=== PATIENT | male | born 1975 | race Caucasian/White ===

== ENCOUNTER → 2016-07-16 | Outpatient (REF) | payer OTHER ==
[~2016-07-16] MED LIST: /OLAN5ZYD OR; CYMB1CAP PO; DEPA250T2 PO; DEPA500T2 OR; DEPA500T2 PO; KLON1TAB PO; OXYC15TA76 PO; OXYC1CON PO; OXYC30TA4 PO; PERC5TAB6 PO; PERC5TAB8 OR; PROP60TA OR; PROT1TAB2 PO; PROTPAK PO; RANI15TA PO; TRAZ50TA OR; TRAZ50TA2 PO; XANA1TAB2 PO
[2016-07-16 14:27] LABS: ALBUMIN 4.2 GM/DL (3.2-5.2); ALBUMIN/GLOBULIN RATIO 1.17 (1.00-1.93); ALKALINE PHOSPHATASE 64 U/L (45-117); ALT/SGPT 27 U/L (12-78); ANION GAP 7 MEQ/L (8-16); AST/SGOT 18 U/L (15-37); BILIRUBIN,TOTAL 0.7 MG/DL (0.2-1.0); BLOOD UREA NITROGEN 8 MG/DL (7-18); CALCIUM LEVEL 9.3 MG/DL (8.5-10.1); CARBON DIOXIDE LEVEL 29 MEQ/L (21-32); CHLORIDE LEVEL 107 MEQ/L (98-107); GLOMERULAR FILTRATION RATE > 60.0 (>60); GLUCOSE, FASTING 85 MG/DL (70-105); POTASSIUM SERUM 3.8 MEQ/L (3.5-5.1); SODIUM LEVEL 143 MEQ/L (136-145); TOTAL PROTEIN 7.8 GM/DL (6.4-8.2)
== END ==
LOC: M SFHCPLAZ 10:30
PROVIDERS: ATTEND Family Medicine
DX: F31.9 Bipolar disorder, unspecified (principal); G89.4 Chronic pain syndrome; F12.10 Cannabis abuse, uncomplicated

== ENCOUNTER 2016-09-16 17:55 | Emergency (ER) | payer OTHER, MEDICAID ==
[~2016-09-16] VITALS: Ht 172.7 cm; Wt 81.6 kg
[2016-09-16] MEDS ORDERED: METH10TA2 PO (18:12)
[2016-09-16] MEDS ORDERED: CLON0.5T PO (18:12)
[2016-09-16] MEDS ORDERED: METHADONE 10 MG TAB (S0109) PO ONE (22:30)
[2016-09-16] MEDS ORDERED: clonazePAM 0.5 MG TAB PO ONE (22:30)
[2016-09-16] MEDS ORDERED: DIVALPROEX 250MG *ER* TAB PO ONE (22:30)
[2016-09-17 02:00] VITALS: BP 126/65
== END 2016-09-17 02:10 ==
LOC: EDBD 17:55 → M ED 18:21
DX: R45.851 Suicidal ideations (principal); F31.9 Bipolar disorder, unspecified; F43.10 Post-traumatic stress disorder, unspecified; G89.29 Other chronic pain; M54.9 Dorsalgia, unspecified; Z87.820 Personal history of traumatic brain injury; F19.20 Other psychoactive substance dependence, uncomplicated; F17.210 Nicotine dependence, cigarettes, uncomplicated

== ENCOUNTER 2016-11-04 13:30 | Emergency (ER) | payer MEDICAID, OTHER ==
[~2016-11-04] VITALS: Ht 172.7 cm; Wt 90.7 kg
[~2016-11-04 13:30] MED LIST changes: +CLON0.5T PO; +METH10TA2 PO; +PERC5TAB12 PO; -PERC5TAB6 PO
[2016-11-04 13:32] VITALS: BP 127/72
[2016-11-04] MEDS ORDERED: METH10TA2 PO ×4 (13:45→13:55)
[2016-11-04] MEDS ORDERED: DEPA250T2 PO (13:55)
[2016-11-04] MEDS ORDERED: LORA0.5T11 PO (13:55)
[2016-11-04] MEDS ORDERED: DEPA500T2 PO (13:55)
[2016-11-04] MEDS ORDERED: ZYPR2.5T2 PO (13:55)
[2016-11-04] MEDS ORDERED: CLEO300C2 PO (14:27)
== END 2016-11-04 14:33 | disposition home or self-care (01) ==
LOC: M ED 13:30
DX: K04.7 Periapical abscess without sinus (principal); K02.9 Dental caries, unspecified; F99 Mental disorder, not otherwise specified; F17.210 Nicotine dependence, cigarettes, uncomplicated; Z88.6 Allergy status to analgesic agent; Z88.8 Allergy status to other drugs, medicaments and biological substances; Z79.899 Other long term (current) drug therapy

== ENCOUNTER → 2017-04-30 | Outpatient (REF) | payer OTHER ==
[2017-04-30 17:24] LABS: ALBUMIN 4.3 GM/DL (3.2-5.2); ALBUMIN/GLOBULIN RATIO 1.19 (1.00-1.93); ALKALINE PHOSPHATASE 74 U/L (45-117); ALT/SGPT 55 U/L (12-78); AST/SGOT 34 U/L (7-37); BILIRUBIN,DIRECT 0.1 MG/DL (0.0-0.2); BILIRUBIN,TOTAL 0.3 MG/DL (0.2-1.0); TOTAL PROTEIN 7.9 GM/DL (6.4-8.2)
[2017-05-04 10:11] LABS: ALPHA 2-MACROGLOBULIN 186 mg/dL (110-276); ALT 52 IU/L (0-55); APOLIPOPROTEIN A-1 151 mg/dL (101-178); FIBROSIS SCORE 0.16 (0.00-0.21); GGT 52 IU/L (0-65); HAPTOGLOBIN 105 mg/dL (34-200); HEPATITIS C QUANTITATION 2715520 IU/mL (.); NECROINFLAM SCORE 0.26 (0.00-0.17); NECROINFLAMM GRADE A0-A1 (.); TOTAL BILIRUBIN 0.3 mg/dL (0.0-1.2)
== END ==
LOC: M SFHCPLAZ 16:01
DX: B18.2 Chronic viral hepatitis C (principal)

== ENCOUNTER → 2017-10-25 | Outpatient (REF) | payer OTHER ==
[2017-10-25 16:18] LABS: ALBUMIN 3.5 GM/DL (3.2-5.2); ALBUMIN/GLOBULIN RATIO 0.92 (1.00-1.93); ALKALINE PHOSPHATASE 68 U/L (45-117); ALT/SGPT 80 U/L (12-78); AST/SGOT 59 U/L (7-37); BILIRUBIN,DIRECT 0.2 MG/DL (0.0-0.2); BILIRUBIN,TOTAL 0.5 MG/DL (0.2-1.0); TOTAL PROTEIN 7.3 GM/DL (6.4-8.2)
[2017-10-25 16:26] LABS: HEPATITIS B SURFACE ANTIBODY NEGATIVE (POSITIVE)
[2017-10-25 17:06] LABS: HIV 1&2 SCREEN CENTAUR NEGATIVE (NEGATIVE)
[2017-10-25 17:49] LABS: CHOLESTEROL LEVEL 176 MG/DL (<200); CHOLESTEROL RISK RATIO 3.911 (<5); HDL CHOLESTEROL 45 MG/DL (>40); LDL CHOLESTEROL 92.4 MG/DL (<100); NON-HDL-C 131 MG/DL; TRIGLYCERIDES LEVEL 193 MG/DL (<150); VALPROIC ACID (DEPAKOTE) 16.4 UG/ML (50.0-100.0)
[2017-10-28 14:44] LABS: HEPATITIS A IgG TOTAL Negative (Negative); HEPATITIS B CORE ANTIBODY IGG Negative (Negative); HEPATITIS C QUANTITATION 4247490 IU/mL (.)
[2017-10-29 15:13] LABS: AMPHETAMINE SCREEN, URINE SEE SEPARATE REPORT
== END ==
LOC: M SFHCPLAZ 10:54
DX: Z13.220 Encounter for screening for lipoid disorders (principal); F31.9 Bipolar disorder, unspecified; G89.4 Chronic pain syndrome; B18.2 Chronic viral hepatitis C
CPT/HCPCS: 80164

== ENCOUNTER → 2017-12-02 | Outpatient (REF) | payer OTHER ==
[2017-12-02 16:59] LABS: ALBUMIN 3.5 GM/DL (3.2-5.2); ALBUMIN/GLOBULIN RATIO 0.88 (1.00-1.93); ALKALINE PHOSPHATASE 68 U/L (45-117); ALT/SGPT 22 U/L (12-78); AST/SGOT 7 U/L (7-37); BILIRUBIN,DIRECT 0.2 MG/DL (0.0-0.2); BILIRUBIN,TOTAL 0.7 MG/DL (0.2-1.0); TOTAL PROTEIN 7.5 GM/DL (6.4-8.2); VALPROIC ACID (DEPAKOTE) 94.1 UG/ML (50.0-100.0)
[2017-12-07 15:19] LABS: HEPATITIS C QUANTITATION <15 IU/mL (.)
== END ==
LOC: M SFHCPLAZ 12:21
DX: B18.2 Chronic viral hepatitis C (principal); F31.9 Bipolar disorder, unspecified
CPT/HCPCS: 80164

== ENCOUNTER → 2018-03-18 | Outpatient (CLI) | payer OTHER | LOC: M RAD 17:47 | DX: M51.26 Other intervertebral disc displacement, lumbar region (principal); M25.78 Osteophyte, vertebrae; M54.9 Dorsalgia, unspecified | CPT/HCPCS: 72148 ==

== ENCOUNTER → 2018-10-24 | Outpatient (REF) | payer OTHER ==
[~2018-10-24] MED LIST changes: -/OLAN5ZYD OR; +CLEO300C2 PO; -CLON0.5T PO; +CLON0.5T8 PO; +LORA0.5T11 PO; +ZYPR1TAB3 OR; +ZYPR2.5T2 PO
[2018-10-29 08:22] LABS: CANNABINOID, URINE Positive (Cutoff=20); CARBOXY THC (GC/MS) 163 ng/mL (Cutoff=10); CREATININE, URINE 113.1 mg/dL (20.0-300.0); METHADONE, URINE (GC/MS) 4475 ng/mL (Cutoff=100)
== END ==
LOC: M SFHCPLAZ 12:28
PROVIDERS: ATTEND Family Medicine
DX: E78.1 Pure hyperglyceridemia (principal); F31.9 Bipolar disorder, unspecified; G89.4 Chronic pain syndrome; B18.2 Chronic viral hepatitis C; M54.9 Dorsalgia, unspecified; R37 Sexual dysfunction, unspecified

== ENCOUNTER → 2018-11-03 | Outpatient (REF) | payer OTHER ==
[2018-11-03 11:56] LABS: HEMATOCRIT 41.8 % (42.0-52.0); HEMOGLOBIN 14.7 g/dl (13.5-17.5); MEAN CORPUSCULAR HEMOGLOBIN 30.6 pg (27.0-33.0); MEAN CORPUSCULAR HGB CONC 35.2 g/dl (32.0-36.5); MEAN CORPUSCULAR VOLUME 87.1 fl (80.0-96.0); PLATELET COUNT, AUTOMATED 182 10^3/uL (150-450); WHITE BLOOD COUNT 6.2 10^3/uL (4.0-10.0)
[2018-11-03 12:38] LABS: ALBUMIN 3.6 GM/DL (3.2-5.2); ALT/SGPT 25 U/L (12-78); BILIRUBIN,TOTAL 0.3 MG/DL (0.2-1.0); BLOOD UREA NITROGEN 9 MG/DL (7-18); CALCIUM LEVEL 8.8 MG/DL (8.5-10.1); CARBON DIOXIDE LEVEL 30 MEQ/L (21-32); CHLORIDE LEVEL 103 MEQ/L (98-107); CHOLESTEROL LEVEL 212 MG/DL (<200); CHOLESTEROL RISK RATIO 5.888 (<5); CREATININE FOR GFR 0.95 MG/DL (0.70-1.30); GLOMERULAR FILTRATION RATE > 60.0 (>60); GLUCOSE, FASTING 113 MG/DL (70-100); HDL CHOLESTEROL 36 MG/DL (>40); LDL CHOLESTEROL 126 MG/DL (<100); NON-HDL-C 176 MG/DL; POTASSIUM SERUM 3.7 MEQ/L (3.5-5.1); SODIUM LEVEL 141 MEQ/L (136-145); TOTAL 25(OH) VITAMIN D 14.8 NG/ML (30.0-100.0); TOTAL PROTEIN 7.4 GM/DL (6.4-8.2); TRIGLYCERIDES LEVEL 250 MG/DL (<150)
[2018-11-07 14:07] LABS: HEPATITIS C QUANTITATION HCV Not Detected IU/mL (.)
== END ==
LOC: M SFHCPLAZ 10:05
PROVIDERS: ATTEND Family Medicine
DX: E78.1 Pure hyperglyceridemia (principal); F31.9 Bipolar disorder, unspecified; B18.2 Chronic viral hepatitis C; G89.4 Chronic pain syndrome; M54.9 Dorsalgia, unspecified; R37 Sexual dysfunction, unspecified

== ENCOUNTER 2019-04-25 13:57 | Emergency (ER) | payer OTHER ==
[~2019-04-25] VITALS: Ht 172.7 cm; Wt 96.4 kg
[~2019-04-25 13:57] MED LIST changes: +CLON0.5T2 PO; -CLON0.5T8 PO
[2019-04-25 15:04] LABS: HEMATOCRIT 43.5 % (42.0-52.0); HEMOGLOBIN 14.4 g/dl (13.5-17.5); MEAN CORPUSCULAR HEMOGLOBIN 28.6 pg (27.0-33.0); MEAN CORPUSCULAR HGB CONC 33.1 g/dl (32.0-36.5); MEAN CORPUSCULAR VOLUME 86.5 fl (80.0-96.0); PLATELET COUNT, AUTOMATED 187 10^3/uL (150-450); RED BLOOD COUNT 5.03 10^6/uL (4.30-6.10); WHITE BLOOD COUNT 4.8 10^3/uL (4.0-10.0)
[2019-04-25 15:36] LABS: ACETAMINOPHEN LEVEL < 2.0 UG/ML (10.0-30.0); ALBUMIN 3.6 GM/DL (3.2-5.2); ALT/SGPT 25 U/L (12-78); BILIRUBIN,DIRECT < 0.1 MG/DL (0.0-0.2); BILIRUBIN,TOTAL 0.3 MG/DL (0.2-1.0); BLOOD UREA NITROGEN 11 MG/DL (7-18); CALCIUM LEVEL 8.6 MG/DL (8.5-10.1); CARBON DIOXIDE LEVEL 31 MEQ/L (21-32); CHLORIDE LEVEL 102 MEQ/L (98-107); ETHYL ALCOHOL (ETHANOL) < 0.003 % (0.000-0.010); GLOMERULAR FILTRATION RATE > 60.0 (>60); GLUCOSE, FASTING 99 MG/DL (70-100); POTASSIUM SERUM 4.3 MEQ/L (3.5-5.1); SALICYLATE LEVEL < 1.7 MG/DL (5.0-30.0); SODIUM LEVEL 139 MEQ/L (136-145)
[2019-04-25 16:59] LABS: AMPHETAMINES LEVEL URINE NEGATIVE (NEGATIVE); BARBITURATES URINE NEGATIVE (NEGATIVE); BENZODIAZEPINES URINE NEGATIVE (NEGATIVE); CANNABINOIDS URINE POSITIVE (NEGATIVE); COCAINE METABOLITE URINE NEGATIVE (NEGATIVE); METHADONE URINE POSITIVE (NEGATIVE); OPIATES URINE NEGATIVE (NEGATIVE); PHENCYCLIDINE URINE NEGATIVE (NEGATIVE)
[2019-04-25 17:05] LABS: VALPROIC ACID (DEPAKOTE) < 3.0 UG/ML (50.0-100.0)
[2019-04-25] MEDS ORDERED: OMEP-221 PO (20:50)
[2019-04-25 23:43] VITALS: BP 123/77
--- NOTE | 2019-04-26 08:04 | ECGEPIP ---
[facility] - ED Test Date: 2019-04-25 Pat Name: KOKO RESENDEZ Department: Room: - Gender: Male [employer] Dispatch Clerk: TRISTEN : 1975 Requested By: JADYN Naranjo Order Number: [id number] Reading MD: Ramona Loza Measurements Intervals [place] Rate: 57 P: 16 AK: 115 QRS: 83 QRSD: 92 T: 55 QT: 385 QTc: 378 Interpretive Statements SINUS BRADYCARDIA WITH SHORT AK INTERVAL NO PRIOR Electronically Signed on 04-26-2019 8:03:35 EST by Ramona Loza
== END 2019-04-25 23:52 ==
LOC: M ED 13:57
DX: F31.9 Bipolar disorder, unspecified (principal); R45.850 Homicidal ideations; R00.1 Bradycardia, unspecified; I25.2 Old myocardial infarction; M54.9 Dorsalgia, unspecified; Z87.820 Personal history of traumatic brain injury; Z79.899 Other long term (current) drug therapy; Z88.8 Allergy status to other drugs, medicaments and biological substances
CPT/HCPCS: 80048; 80076; 80164; 80307; 84443; 85027; 93005; 99285; G0480

== ENCOUNTER → 2020-07-18 | Outpatient (REF) | payer OTHER ==
[~2020-07-18] MED LIST changes: -LORA0.5T11 PO; +LORA0.5T5 PO; +OMEP-221 PO; +OXYC-1 PO; -OXYC15TA76 PO
[2020-07-21 23:08] LABS: CANNABINOID, URINE Positive (Cutoff=20); CARBOXY THC (GC/MS) 295 ng/mL (Cutoff=10); CREATININE, URINE 192.6 mg/dL (20.0-300.0); METHADONE, URINE (GC/MS) 2950 ng/mL (Cutoff=100)
== END ==
LOC: M SFHCPLAZ 13:11
PROVIDERS: ATTEND Family Medicine
DX: G89.4 Chronic pain syndrome (principal)

== ENCOUNTER 2021-07-01 15:51 | Emergency (ER) | payer OTHER ==
[~2021-07-01] VITALS: Ht 172.7 cm; Wt 88.2 kg
[~2021-07-01 15:51] MED LIST changes: +METH-1177 PO; -METH10TA2 PO; -OMEP-221 PO; +OMEP40CA5 PO
[2021-07-01 15:52] VITALS: BP 131/85
== END 2021-07-01 17:56 | disposition left against medical advice (07) ==
LOC: M ED 15:51
DX: M54.9 Dorsalgia, unspecified (principal); Z53.9 Procedure and treatment not carried out, unspecified reason; G89.29 Other chronic pain; F41.9 Anxiety disorder, unspecified; F31.9 Bipolar disorder, unspecified; Z86.19 Personal history of other infectious and parasitic diseases; Z87.820 Personal history of traumatic brain injury; F17.200 Nicotine dependence, unspecified, uncomplicated; Z88.8 Allergy status to other drugs, medicaments and biological substances

== ENCOUNTER 2021-08-07 14:07 | Inpatient (IN) | payer MEDICAID, OTHER ==
[~2021-08-07] VITALS: Ht 172.7 cm; Wt 90.0 kg
[2021-08-07 15:17] LABS: AMPHETAMINES LEVEL URINE NEGATIVE (NEGATIVE); BARBITURATES URINE NEGATIVE (NEGATIVE); BENZODIAZEPINES URINE NEGATIVE (NEGATIVE); CANNABINOIDS URINE NEGATIVE (NEGATIVE); COCAINE METABOLITE URINE NEGATIVE (NEGATIVE); METHADONE URINE NEGATIVE (NEGATIVE); OPIATES URINE NEGATIVE (NEGATIVE); PHENCYCLIDINE URINE NEGATIVE (NEGATIVE)
[2021-08-07 16:09] LABS: HEMATOCRIT 44.7 % (42.0-52.0); HEMOGLOBIN 15.6 g/dl (13.5-17.5); MEAN CORPUSCULAR HEMOGLOBIN 29.3 pg (27.0-33.0); MEAN CORPUSCULAR HGB CONC 34.9 g/dl (32.0-36.5); PLATELET COUNT, AUTOMATED 246 10^3/uL (150-450); RED BLOOD COUNT 5.32 10^6/uL (4.30-6.10); WHITE BLOOD COUNT 8.5 10^3/uL (4.0-10.0)
[2021-08-07] MEDS ORDERED: IBUP80TA PO (16:33)
[2021-08-07] MEDS ORDERED: CIPR500T39 PO (16:33)
[2021-08-07 16:45] LABS: ACETAMINOPHEN LEVEL < 2.0 UG/ML (10.0-30.0); ALBUMIN 4.1 GM/DL (3.2-5.2); ALT/SGPT 30 U/L (12-78); BILIRUBIN,DIRECT 0.1 MG/DL (0.0-0.2); BILIRUBIN,TOTAL 0.4 MG/DL (0.2-1.0); BLOOD UREA NITROGEN 10 MG/DL (7-18); CALCIUM LEVEL 9.7 MG/DL (8.5-10.1); CARBON DIOXIDE LEVEL 27 MEQ/L (21-32); CHLORIDE LEVEL 106 MEQ/L (98-107); ETHYL ALCOHOL (ETHANOL) < 0.003 % (0.000-0.010); GLOMERULAR FILTRATION RATE > 60.0 (>60); GLUCOSE, FASTING 137 MG/DL (70-100); POTASSIUM SERUM 3.9 MEQ/L (3.5-5.1); SALICYLATE LEVEL < 1.7 MG/DL (5.0-30.0); SODIUM LEVEL 143 MEQ/L (136-145); TOTAL PROTEIN 7.9 GM/DL (6.4-8.2)
[2021-08-07] MEDS ORDERED: IBUPROFEN 600MG TAB PO ONE (18:00)
[2021-08-07 20:17] LABS: RSV AMPLIFICATION NEGATIVE (NEGATIVE)
[2021-08-07] MEDS ORDERED: VITMTA PO (20:30)
[2021-08-07] MEDS ORDERED: HOME MED LIST COMPLETE! XX SCH (20:30)
[2021-08-07] MEDS ORDERED: CIPROFLOXACIN 500MG TABLET PO ONE (20:45)
[2021-08-08] MEDS ORDERED: ACETAMINOPHEN 325 MG TAB PO ONE (07:55)
[2021-08-08] MEDS: CIPROFLOXACIN 500MG TABLET PO SCH ×2 (08:23→22:12)
[2021-08-08] MEDS ORDERED: IBUPROFEN 600MG TAB PO ONE ×2 (08:30→18:15)
[2021-08-09] MEDS: CIPROFLOXACIN 500MG TABLET PO SCH ×2 (08:56→19:30)
[2021-08-09] MEDS ORDERED: IBUPROFEN 600MG TAB PO ONE (14:40)
[2021-08-09] MEDS ORDERED: ACETAMINOPHEN TAB 650MG DOSE (2X325MG) PO ONE (19:20)
[2021-08-09] MEDS: SENOKOT S TAB PO SCH (19:31)
[2021-08-10] MEDS: IBUPROFEN 600MG TAB PO PRN (10:12)
[2021-08-10] MEDS: SENOKOT S TAB PO SCH ×2 (10:12→21:12)
[2021-08-10] MEDS: CIPROFLOXACIN 500MG TABLET PO SCH ×2 (10:12→21:13)
[2021-08-10] MEDS ORDERED: ACETAMINOPHEN TAB 650MG DOSE (2X325MG) PO ONE (12:45)
[2021-08-11] MEDS: CIPROFLOXACIN 500MG TABLET PO SCH ×2 (09:05→21:00)
[2021-08-11] MEDS: SENOKOT S TAB PO SCH ×2 (09:05→21:00)
[2021-08-11] MEDS ORDERED: MOM 30ML SUSPENSION UDC PO PRN (13:35)
[2021-08-11] MEDS ORDERED: traZODone 50 MG TAB PO PRN (13:35)
[2021-08-11] MEDS ORDERED: ONDANSETRON 4MG ORAL DISINTEGRATING TAB PO ONE (14:55)
[2021-08-11 16:29] VITALS: BP 134/91
[2021-08-11] MEDS: IBUPROFEN 600MG TAB PO PRN (18:36)
[2021-08-12 06:24] VITALS: BP 147/82
[2021-08-12] MEDS: SENOKOT S TAB PO SCH (08:11)
[2021-08-12] MEDS: CIPROFLOXACIN 500MG TABLET PO SCH (08:12)
[2021-08-12] MEDS ORDERED: NICOTINE 14 MG/24 HR TRANSDERMAL TD PRN (11:15)
[2021-08-12 18:00] VITALS: BP 148/88
[2021-08-12] MEDS: DIVALPROEX 250MG *ER* TAB PO SCH (20:49)
[2021-08-12] MEDS: ACETAMINOPHEN TAB 650MG DOSE (2X325MG) PO PRN (20:51)
[2021-08-13] MEDS: diphenhydrAMINE 25MG CAP PO PRN ×2 (02:56→23:16)
[2021-08-13] MEDS: ACETAMINOPHEN TAB 650MG DOSE (2X325MG) PO PRN (04:01)
[2021-08-13 07:03] VITALS: BP 124/78
[2021-08-13 08:00] LABS: BASO % 0.6 % (0.0-1.0); EOS # 0.1 10^3/uL (0.0-0.5); EOS % 1.3 % (0.0-3.0); HEMATOCRIT 42.7 % (42.0-52.0); LYMPH # 2.5 10^3/uL (1.5-5.0); LYMPH % 37.1 % (24.0-44.0); MEAN CORPUSCULAR HEMOGLOBIN 29.2 pg (27.0-33.0); MEAN CORPUSCULAR HGB CONC 35.1 g/dl (32.0-36.5); MEAN CORPUSCULAR VOLUME 83.2 fl (80.0-96.0); MONO # 0.5 10^3/uL (0.0-0.8); MONO % 7.3 % (2.0-8.0); NEUTROPHILS # 3.6 10^3/uL (1.5-8.5); NEUTROPHILS % 53.3 % (36.0-66.0); PLATELET COUNT, AUTOMATED 236 10^3/uL (150-450); RED BLOOD COUNT 5.13 10^6/uL (4.30-6.10); WHITE BLOOD COUNT 6.8 10^3/uL (4.0-10.0)
[2021-08-13 08:22] LABS: BLOOD UREA NITROGEN 12 MG/DL (7-18); CARBON DIOXIDE LEVEL 30 MEQ/L (21-32); CHLORIDE LEVEL 104 MEQ/L (98-107); CHOLESTEROL LEVEL 199 MG/DL (<200); CHOLESTEROL RISK RATIO 4.145 (<5); CREATININE FOR GFR 0.81 MG/DL (0.70-1.30); GLOMERULAR FILTRATION RATE > 60.0 (>60); GLUCOSE, FASTING 98 MG/DL (70-100); HDL CHOLESTEROL 48 MG/DL (>40); LDL CHOLESTEROL 123 MG/DL (<100); NON-HDL-C 151 MG/DL; POTASSIUM SERUM 4.4 MEQ/L (3.5-5.1); SODIUM LEVEL 140 MEQ/L (136-145); TRIGLYCERIDES LEVEL 142 MG/DL (<150)
[2021-08-13 08:32] LABS: HEMOGLOBIN A1c 5.2 %
[2021-08-13 16:26] VITALS: BP 123/70
[2021-08-13] MEDS: ARIPiprazole 10 MG TAB PO SCH (20:59)
[2021-08-13] MEDS: DIVALPROEX 250MG *ER* TAB PO SCH (21:00)
[2021-08-14] MEDS: ACETAMINOPHEN TAB 650MG DOSE (2X325MG) PO PRN ×2 (04:31→16:45)
[2021-08-14 06:34] VITALS: BP 126/86
[2021-08-14 18:28] VITALS: BP 131/84
[2021-08-14] MEDS: ARIPiprazole 10 MG TAB PO SCH (20:57)
[2021-08-14] MEDS ORDERED: DIVALPROEX 500MG *ER* TAB PO SCH (21:00)
[2021-08-14] MEDS: diphenhydrAMINE 25MG CAP PO PRN (22:20)
[2021-08-15 07:08] VITALS: BP 140/90
[2021-08-15] MEDS ORDERED: DEPA500T2 PO (09:43)
[2021-08-15] MEDS ORDERED: ABIL400I IM (09:43)
[2021-08-15] MEDS ORDERED: ABIL10TA9 PO (09:43)
[2021-08-15] MEDS ORDERED: NICO14PA TD (09:43)
[2021-08-15] MEDS ORDERED: ARIPiprazole MONOHYDRATE 400 MG INJ (ABILIFY) IM ONE (12:00)
[2021-08-15] MEDS ORDERED: DEPA1TAB3 PO (13:27)
[2021-08-16] MEDS ORDERED: CIPROFLOXACIN 500MG TABLET PO ONE (21:00)
== END 2021-08-15 14:19 | disposition home or self-care (01) | DRG 753 ==
LOC: M ED 14:07 → UNDOADMIN 08-11 13:35 → M ED INP 08-11 13:35 → M PSY 08-11 16:20
PROVIDERS: ADMIT Student in an Organized Health Care Education/Training Program; ATTEND Student in an Organized Health Care Education/Training Program
DX: F31.9 Bipolar disorder, unspecified (principal); F60.89 Other specific personality disorders; F22 Delusional disorders; Z91.14 Patient's other noncompliance with medication regimen; R45.850 Homicidal ideations; Z87.820 Personal history of traumatic brain injury; Z87.891 Personal history of nicotine dependence; F19.11 Other psychoactive substance abuse, in remission; Z79.899 Other long term (current) drug therapy; Z88.8 Allergy status to other drugs, medicaments and biological substances; M54.9 Dorsalgia, unspecified; Z20.822 Contact with and (suspected) exposure to COVID-19

== ENCOUNTER 2021-10-27 16:56 | Inpatient (IN) | payer MEDICAID, OTHER ==
[~2021-10-27] VITALS: Ht 172.7 cm; Wt 98.4 kg
[~2021-10-27 16:56] MED LIST changes: +ABIL10TA9 PO; +ABIL400I IM; +CIPR500T39 PO; +DEPA1TAB3 PO; +IBUP80TA PO; +NICO14PA TD; +VITMTA PO
[2021-10-27] MEDS ORDERED: HYDR50TA70 PO (17:13)
[2021-10-27] MEDS ORDERED: ZOLP10TA2 (17:13)
[2021-10-27 18:43] LABS: HEMATOCRIT 43.7 % (42.0-52.0); HEMOGLOBIN 15.2 g/dl (13.5-17.5); MEAN CORPUSCULAR HEMOGLOBIN 29.6 pg (27.0-33.0); MEAN CORPUSCULAR HGB CONC 34.8 g/dl (32.0-36.5); MEAN CORPUSCULAR VOLUME 85.2 fl (80.0-96.0); PLATELET COUNT, AUTOMATED 233 10^3/uL (150-450); RED BLOOD COUNT 5.13 10^6/uL (4.30-6.10); WHITE BLOOD COUNT 7.6 10^3/uL (4.0-10.0)
[2021-10-27] MEDS ORDERED: ACETAMINOPHEN TAB 650MG DOSE (2X325MG) PO ONE (19:00)
[2021-10-27 19:16] LABS: RSV AMPLIFICATION NEGATIVE (NEGATIVE)
[2021-10-27 19:20] LABS: BLOOD UREA NITROGEN 14 MG/DL (7-18); CREATININE FOR GFR 0.91 MG/DL (0.70-1.30); GLUCOSE, FASTING 90 MG/DL (70-100)
[2021-10-27 19:21] LABS: ACETAMINOPHEN LEVEL < 2.0 UG/ML (10.0-30.0); ALBUMIN 3.9 GM/DL (3.2-5.2); ALT/SGPT 23 U/L (12-78); BILIRUBIN,DIRECT 0.1 MG/DL (0.0-0.2); BILIRUBIN,TOTAL 0.4 MG/DL (0.2-1.0); CALCIUM LEVEL 8.8 MG/DL (8.5-10.1); CARBON DIOXIDE LEVEL 28 MEQ/L (21-32); CHLORIDE LEVEL 106 MEQ/L (98-107); ETHYL ALCOHOL (ETHANOL) < 0.003 % (0.000-0.010); GLOMERULAR FILTRATION RATE > 60.0 (>60); SALICYLATE LEVEL < 1.7 MG/DL (5.0-30.0); SODIUM LEVEL 137 MEQ/L (136-145); TOTAL PROTEIN 7.8 GM/DL (6.4-8.2)
[2021-10-27] MEDS ORDERED: ARIP10TA32 PO (20:25)
[2021-10-27] MEDS ORDERED: DIVA500T94 PO (20:25)
[2021-10-27] MEDS ORDERED: HOME MED LIST COMPLETE! XX SCH (20:25)
[2021-10-27 21:00] LABS: AMPHETAMINES LEVEL URINE NEGATIVE (NEGATIVE); BARBITURATES URINE NEGATIVE (NEGATIVE); BENZODIAZEPINES URINE NEGATIVE (NEGATIVE); CANNABINOIDS URINE POSITIVE (NEGATIVE); COCAINE METABOLITE URINE NEGATIVE (NEGATIVE); METHADONE URINE NEGATIVE (NEGATIVE); OPIATES URINE NEGATIVE (NEGATIVE); PHENCYCLIDINE URINE NEGATIVE (NEGATIVE)
[2021-10-27] MEDS: ARIPiprazole 10 MG TAB PO SCH (21:00)
[2021-10-27] MEDS ORDERED: diphenhydrAMINE 25MG CAP PO ONE (23:20)
[2021-10-28] MEDS ORDERED: traZODone 50 MG TAB PO PRN (04:00)
[2021-10-28] MEDS ORDERED: hydrOXYzine 50 MG TAB PO PRN (04:00)
[2021-10-28] MEDS ORDERED: MAALOX 30 ML SUSP *UDC PO PRN (04:00)
[2021-10-28] MEDS ORDERED: MOM 30ML SUSPENSION UDC PO PRN (04:00)
[2021-10-28 05:44] VITALS: BP 122/86
[2021-10-28] MEDS: ACETAMINOPHEN TAB 650MG DOSE (2X325MG) PO PRN ×2 (06:40→15:35)
[2021-10-28] MEDS: DIVALPROEX 500 MG TAB PO SCH ×2 (09:58→20:33)
[2021-10-28 18:18] VITALS: BP 145/88
[2021-10-28] MEDS: ARIPiprazole 10 MG TAB PO SCH (20:33)
[2021-10-28] MEDS ORDERED: zolPIDEM TARTRATE 5 MG TAB PO PRN (20:35)
[2021-10-28] MEDS: zolPIDEM TARTRATE 5 MG TAB PO PRN (20:49)
[2021-10-29 06:49] VITALS: BP 102/63
[2021-10-29] MEDS: DIVALPROEX 500 MG TAB PO SCH ×2 (08:02→20:10)
[2021-10-29] MEDS: ACETAMINOPHEN TAB 650MG DOSE (2X325MG) PO PRN ×2 (12:02→18:09)
[2021-10-29] MEDS ORDERED: ARIPiprazole MONOHYDRATE 400 MG INJ (ABILIFY)(FREE PSY INPT ONLY) IM ONE (15:00)
[2021-10-29 19:19] VITALS: BP 150/89
[2021-10-29] MEDS: ARIPiprazole 10 MG TAB PO SCH (20:10)
[2021-10-29] MEDS: zolPIDEM TARTRATE 5 MG TAB PO PRN (20:10)
[2021-10-30 06:36] VITALS: BP 113/65
[2021-10-30] MEDS: ACETAMINOPHEN TAB 650MG DOSE (2X325MG) PO PRN (08:12)
[2021-10-30] MEDS: DIVALPROEX 500 MG TAB PO SCH ×2 (08:12→20:25)
[2021-10-30] MEDS ORDERED: IBUPROFEN 800 MG TAB PO PRN (08:50)
[2021-10-30] MEDS: MULTIVITAMINS/MINERALS THERAP 1 TAB PO SCH (09:33)
[2021-10-30] MEDS: ARIPiprazole 10 MG TAB PO SCH (20:24)
[2021-10-31 06:32] VITALS: BP 144/92
[2021-10-31] MEDS: DIVALPROEX 500 MG TAB PO SCH (08:05)
[2021-10-31] MEDS: MULTIVITAMINS/MINERALS THERAP 1 TAB PO SCH (08:05)
[2021-10-31] MEDS: ACETAMINOPHEN TAB 650MG DOSE (2X325MG) PO PRN (08:18)
[2021-10-31] MEDS ORDERED: ABIL10TA9 PO (10:31)
[2021-10-31] MEDS ORDERED: VITMTA PO (10:31)
[2021-10-31] MEDS ORDERED: DEPA1TAB3 PO (10:31)
[2021-10-31] MEDS ORDERED: ABIL1INJ2 IM (10:33)
[2021-10-31] MEDS ORDERED: AMBI10TA PO (20:07)
== END 2021-10-31 11:42 | disposition home or self-care (01) | DRG 753 ==
LOC: M ED 16:56 → M ED INP 10-28 04:00 → M PSY 10-28 05:42
PROVIDERS: ADMIT Psychiatry & Neurology Psychiatry; ATTEND Psychiatry & Neurology Psychiatry
DX: F31.9 Bipolar disorder, unspecified (principal); F60.89 Other specific personality disorders; F17.200 Nicotine dependence, unspecified, uncomplicated; Z87.820 Personal history of traumatic brain injury; M54.9 Dorsalgia, unspecified; Z79.899 Other long term (current) drug therapy; Z88.6 Allergy status to analgesic agent; Z88.8 Allergy status to other drugs, medicaments and biological substances; Z91.128 Patient's intentional underdosing of medication regimen for other reason; Z91.14 Patient's other noncompliance with medication regimen

== ENCOUNTER → 2021-12-05 | Outpatient (CLI) | payer MEDICAID, OTHER ==
[~2021-12-05] MED LIST changes: +ABIL1INJ2 IM; +AMBI10TA PO; +ARIP10TA32 PO; +DIVA500T94 PO; +HYDR50TA70 PO; +ZOLP10TA2
== END ==
LOC: M PLALAB 08:58
PROVIDERS: ATTEND Registered Nurse
DX: F31.9 Bipolar disorder, unspecified (principal)

== ENCOUNTER 2021-12-11 19:24 | Emergency (ER) | payer MEDICAID, OTHER ==
[~2021-12-11] VITALS: Ht 172.7 cm; Wt 101.6 kg
[2021-12-11 19:25] VITALS: BP 142/90
[2021-12-11] MEDS ORDERED: METH-1177 PO (20:08)
== END 2021-12-12 00:33 | disposition left against medical advice (07) ==
LOC: M ED 19:24
DX: Z53.21 Procedure and treatment not carried out due to patient leaving prior to being seen by health care provider (principal)

== ENCOUNTER 2022-01-05 18:23 | Emergency (ER) | payer MEDICAID, OTHER ==
[~2022-01-05] VITALS: Ht 172.7 cm; Wt 89.1 kg
[2022-01-05 19:47] LABS: BASO % 0.8 % (0.0-1.0); EOS # 0.1 10^3/uL (0.0-0.5); EOS % 1.8 % (0.0-3.0); HEMOGLOBIN 15.6 g/dl (13.5-17.5); LYMPH # 1.5 10^3/uL (1.5-5.0); LYMPH % 29.3 % (24.0-44.0); MEAN CORPUSCULAR HEMOGLOBIN 28.9 pg (27.0-33.0); MEAN CORPUSCULAR HGB CONC 33.9 g/dl (32.0-36.5); MEAN CORPUSCULAR VOLUME 85.2 fl (80.0-96.0); MONO # 0.6 10^3/uL (0.0-0.8); MONO % 11.1 % (2.0-8.0); NEUTROPHILS # 2.8 10^3/uL (1.5-8.5); NEUTROPHILS % 56.2 % (36.0-66.0); PLATELET COUNT, AUTOMATED 175 10^3/uL (150-450); WHITE BLOOD COUNT 5.1 10^3/uL (4.0-10.0)
[2022-01-05 20:57] LABS: BLOOD UREA NITROGEN 17 MG/DL (7-18); CALCIUM LEVEL 9.1 MG/DL (8.5-10.1); CARBON DIOXIDE LEVEL 33 MEQ/L (21-32); CHLORIDE LEVEL 102 MEQ/L (98-107); CREATININE FOR GFR 1.04 MG/DL (0.70-1.30); GLOMERULAR FILTRATION RATE > 60.0 (>60); GLUCOSE, FASTING 87 MG/DL (70-100); POTASSIUM SERUM 3.9 MEQ/L (3.5-5.1); SODIUM LEVEL 138 MEQ/L (136-145)
[2022-01-06] MEDS ORDERED: GI COCKTAIL 50ML BTL(HYOSCYAMINE/MAALOX/LIDOCAINE VISCOUS)(1:3:1) PO ONE (02:25)
[2022-01-06 03:00] VITALS: BP 118/68
== END 2022-01-06 03:47 | disposition home or self-care (01) ==
LOC: M ED 18:23
DX: T50.905A Adverse effect of unspecified drugs, medicaments and biological substances, initial encounter (principal); F32.9 Major depressive disorder, single episode, unspecified; Z79.899 Other long term (current) drug therapy; Z88.8 Allergy status to other drugs, medicaments and biological substances

== ENCOUNTER → 2022-05-07 | Outpatient (CLI) | payer OTHER ==
[2022-05-07 15:29] LABS: VALPROIC ACID (DEPAKOTE) 73.4 UG/ML (50.0-100.0)
[2022-05-07 15:31] LABS: ALBUMIN 3.5 G/DL (3.2-5.2); ALKALINE PHOSPHATASE 56 U/L (46-116); ALT/SGPT 24 U/L (7.0-40); AST/SGOT 19 U/L (<34); BILIRUBIN,TOTAL 0.4 MG/DL (0.3-1.2); BLOOD UREA NITROGEN 9 MG/DL (9-23); CALCIUM LEVEL 8.9 MG/DL (8.5-10.1); CARBON DIOXIDE LEVEL 33 MMOL/L (20-31); CHLORIDE LEVEL 100 MMOL/L (98-107); CHOLESTEROL LEVEL 203 MG/DL (<200); CHOLESTEROL RISK RATIO 5.57 (<5); CREATININE FOR GFR 0.89 MG/DL (0.70-1.30); GLOMERULAR FILTRATION RATE > 60.0 (>60); GLUCOSE, FASTING 92 MG/DL (60-100); HDL CHOLESTEROL 36.4 MG/DL (>40); LDL CHOLESTEROL 118.6 MG/DL (<100); NON-HDL-C 167 MG/DL; POTASSIUM SERUM 4.2 MMOL/L (3.5-5.1); SODIUM LEVEL 139 MMOL/L (136-145); TOTAL PROTEIN 7.1 G/DL (5.7-8.2); TRIGLYCERIDES LEVEL 240 MG/DL (<150)
[2022-05-07 15:33] LABS: THYROID STIMULATING HORMONE 5.802 uIU/ML (0.55-4.78)
[2022-05-07 16:10] LABS: HEMATOCRIT 41.5 % (42.0-52.0); HEMOGLOBIN 13.8 g/dl (13.5-17.5); MEAN CORPUSCULAR HEMOGLOBIN 29.3 pg (27.0-33.0); MEAN CORPUSCULAR HGB CONC 33.3 g/dl (32.0-36.5); MEAN CORPUSCULAR VOLUME 88.1 fl (80.0-96.0); PLATELET COUNT, AUTOMATED 197 10^3/uL (150-450); RED BLOOD COUNT 4.71 10^6/uL (4.30-6.10); WHITE BLOOD COUNT 5.9 10^3/uL (4.0-10.0)
== END ==
LOC: M PLALAB 09:38
PROVIDERS: ATTEND Family Medicine
DX: E78.1 Pure hyperglyceridemia (principal); Z13.1 Encounter for screening for diabetes mellitus; Z13.29 Encounter for screening for other suspected endocrine disorder; F31.9 Bipolar disorder, unspecified; G89.4 Chronic pain syndrome; M54.9 Dorsalgia, unspecified; K05.10 Chronic gingivitis, plaque induced

== ENCOUNTER → 2022-11-13 | Outpatient (REF) | payer OTHER | LOC: M SFHCPLAZ 14:04 | PROVIDERS: ATTEND Family Medicine | DX: Z53.9 Procedure and treatment not carried out, unspecified reason (principal) ==

== ENCOUNTER → 2022-11-13 | Outpatient (CLI) | payer OTHER ==
[2022-11-13 15:48] LABS: HEMATOCRIT 41.3 % (42.0-52.0); HEMOGLOBIN 14.5 g/dl (13.5-17.5); MEAN CORPUSCULAR HEMOGLOBIN 29.2 pg (27.0-33.0); MEAN CORPUSCULAR HGB CONC 35.1 g/dl (32.0-36.5); MEAN CORPUSCULAR VOLUME 83.1 fl (80.0-96.0); PLATELET COUNT, AUTOMATED 219 10^3/uL (150-450); RED BLOOD COUNT 4.97 10^6/uL (4.30-6.10); WHITE BLOOD COUNT 7.5 10^3/uL (4.0-10.0)
[2022-11-13 15:54] LABS: ALBUMIN 4.1 G/DL (3.2-5.2); ALKALINE PHOSPHATASE 63 U/L (46-116); ALT/SGPT 34 U/L (7.0-40); AST/SGOT 17 U/L (<34); BILIRUBIN,TOTAL 0.6 MG/DL (0.3-1.2); BLOOD UREA NITROGEN 12 MG/DL (9-23); CALCIUM LEVEL 9.1 MG/DL (8.5-10.1); CARBON DIOXIDE LEVEL 29 MMOL/L (20-31); CHLORIDE LEVEL 99 MMOL/L (98-107); CREATININE FOR GFR 0.84 MG/DL (0.70-1.30); GLOMERULAR FILTRATION RATE > 60.0 (>60); GLUCOSE, FASTING 98 MG/DL (60-100); POTASSIUM SERUM 3.5 MMOL/L (3.5-5.1); SODIUM LEVEL 137 MMOL/L (136-145); TOTAL PROTEIN 7.7 G/DL (5.7-8.2)
[2022-11-13 15:56] LABS: FREE T4 1.25 NG/DL (0.89-1.76); THYROID STIMULATING HORMONE 3.383 uIU/ML (0.55-4.78)
== END ==
LOC: M PLALAB 14:22
PROVIDERS: ATTEND Family Medicine
DX: E03.9 Hypothyroidism, unspecified (principal); F31.9 Bipolar disorder, unspecified; F51.05 Insomnia due to other mental disorder; G89.4 Chronic pain syndrome

== ENCOUNTER → 2023-11-19 | Outpatient (REF) | payer OTHER ==
[2023-11-19 22:39] LABS: GC DNA AMPLIFICATION NEGATIVE (NEGATIVE)
== END ==
LOC: M LAB REF 20:59
PROVIDERS: ATTEND Family Medicine
DX: N45.1 Epididymitis (principal); R10.9 Unspecified abdominal pain

== ENCOUNTER → 2024-04-07 | Outpatient (CLI) | payer OTHER ==
[~2024-04-07] MED LIST changes: -ARIP10TA32 PO; +ARIP10TA63 PO
== END ==
LOC: M PLALAB 15:27
PROVIDERS: ATTEND Family Medicine
DX: E03.9 Hypothyroidism, unspecified (principal)